=== PATIENT | female | born 1965 | race Caucasian/White ===

== ENCOUNTER 2021-02-21 10:07 | Outpatient (REF) | payer OTHER, SELFPAY ==
[2021-02-21 13:21] LABS: Folate 15.9 ng/mL (> or = 4.0); Vitamin B12 697 pg/mL (200-900)
[2021-02-21 13:22] LABS: Calcium 9.7 mg/dL (8.4-10.2); Magnesium 2.3 mg/dL (1.6-2.6)
[2021-02-23 14:56] LABS: IgA 221 mg/dL (47-310); IgG 1540 mg/dL (600-1640); IgM 105 mg/dL (50-300)
== END 2021-02-21 10:08 | disposition home or self-care (01) ==
LOC: HO.LAB 10:07
PROVIDERS: PCP Internal Medicine; Visit Provider Psychiatry & Neurology Neurology
DX: R20.2 Paresthesia of skin (principal)
CPT/HCPCS: 36415; 82310; 82607; 82746; 82784; 83735; 86334